=== PATIENT | male | born 2000 | race Caucasian/White ===

== ENCOUNTER 2022-10-16 00:10 | Inpatient (IN) | payer OTHER, SELFPAY ==
[2022-10-16] MEDS ORDERED: Fentanyl 100 MCG/2 ML VIAL ONE (00:51)
[2022-10-16] MEDS ORDERED: Morphine 4 MG/ML VIAL SLOW IVP PRN (02:32)
[2022-10-16] MEDS ORDERED: Ondansetron PF 4 MG/2 ML Vial IVP PRN ×2 (02:45→04:20)
[2022-10-16] MEDS ORDERED: Sodium Chloride 0.9% 1,000 ML IV SCH (02:45)
[2022-10-16] MEDS ORDERED: Ondansetron ODT 4 MG TAB SL PRN (02:45)
[2022-10-16 03:19] VITALS: BMI 27.9
[2022-10-16 03:56] LABS: SARS-CoV-2 NAA Rapid Test Not Detected (NotDetected)
[2022-10-16] MEDS: Sodium Chloride 0.9% 1,000 ML IV SCH ×2 (04:22→15:58)
[2022-10-16] MEDS ORDERED: Morphine 4 MG/ML VIAL SLOW IVP SCH (04:30)
[2022-10-16] MEDS ORDERED: Bupivacaine PF 0.5% 30 ML VIAL ONE (05:15)
[2022-10-16] MEDS ORDERED: Neomycin-Polymyxin 1 ML AMP ONE ×2 (05:16→06:49)
[2022-10-16] MEDS ORDERED: Thrombin 5000 UNITS/5 ML VIAL ONE (05:16)
[2022-10-16] MEDS ORDERED: Bacitracin Zinc Ointment 30 gm TUBE ONE (05:16)
[2022-10-16] MEDS ORDERED: Fentanyl 250 MCG/5 ML VIAL ONE (05:18)
[2022-10-16] MEDS ORDERED: Bisacodyl 10 MG SUPP PR PRN (05:43)
[2022-10-16] MEDS ORDERED: TETANUS, DIPHTHERIA TOX,ADULT (TDVAX) 0.5 ML VIAL IM ONE (05:43)
[2022-10-16] MEDS ORDERED: Communication Order-Pharmacy FS PRN (05:45)
[2022-10-16] MEDS: CEFAZOLIN 2 GM in Sodium Chloride 0.9% 100 ML IVPB SCH ×3 (05:59→22:03)
[2022-10-16] MEDS ORDERED: CEFAZOLIN 2 GM in Sodium Chloride 0.9% 100 ML IVPB SCH ×2 (06:00)
[2022-10-16] MEDS ORDERED: Dexamethasone 20 MG/5 ML VIAL ONE (06:01)
[2022-10-16] MEDS ORDERED: Glycopyrrolate 0.2 MG/ML 5 ML SYRINGE ONE (06:01)
[2022-10-16] MEDS ORDERED: NEOSTIGMINE 3 MG/3 ML SYR 3 MG/3 ML SYRINGE ONE (06:01)
[2022-10-16] MEDS ORDERED: PROPOFOL 200 MG/20 ML VIAL ONE (06:01)
[2022-10-16] MEDS ORDERED: Lidocaine 1% PF 5 ML VIAL ONE (06:01)
[2022-10-16] MEDS ORDERED: Rocuronium Bromide 10 MG/ML (10ML VIAL) ONE (06:01)
[2022-10-16] MEDS ORDERED: Ondansetron PF 4 MG/2 ML Vial ONE (06:01)
[2022-10-16] MEDS ORDERED: Promethazine HCl 25 MG/ML VIAL IM PRN (10:02)
[2022-10-16] MEDS ORDERED: Ondansetron HCl/PF 4 MG/2 ML Vial IVP PRN (10:02)
[2022-10-16] MEDS ORDERED: Ketorolac Tromethamine 30 MG/ML VIAL ONE (10:07)
[2022-10-16] MEDS: Ketorolac Tromethamine 30 MG/ML VIAL IVP PRN ×2 (10:18→18:54)
[2022-10-16] MEDS: Aspirin 81 mg Enteric Coated Tablet PO SCH ×2 (10:22→20:02)
[2022-10-16] MEDS: Gentamicin 80 MG/2 ML VIAL IM SCH ×3 (10:22→23:00)
[2022-10-16] MEDS: HYDROcodone/Acetaminophen 5/325 mg Tablet PO PRN ×3 (12:46→22:59)
[2022-10-16] MEDS: Morphine 4 MG/ML VIAL SLOW IVP PRN ×3 (14:06→22:03)
[2022-10-16] MEDS: Meperidine HCl/PF 25 MG/ML VIAL IM PRN (15:32)
[2022-10-17] MEDS: Sodium Chloride 0.9% 1,000 ML IV SCH ×2 (00:19→11:47)
[2022-10-17] MEDS: Ketorolac Tromethamine 30 MG/ML VIAL IVP PRN ×4 (01:15→19:56)
[2022-10-17] MEDS: Morphine 4 MG/ML VIAL SLOW IVP PRN ×5 (01:15→21:57)
[2022-10-17] MEDS: HYDROcodone/Acetaminophen 5/325 mg Tablet PO PRN ×2 (04:12→09:25)
[2022-10-17] MEDS: CEFAZOLIN 2 GM in Sodium Chloride 0.9% 100 ML IVPB SCH ×3 (05:21→21:56)
[2022-10-17] MEDS: Gentamicin 80 MG/2 ML VIAL IM SCH ×2 (05:21→14:09)
[2022-10-17] MEDS: Aspirin 81 mg Enteric Coated Tablet PO SCH ×2 (09:25→19:55)
[2022-10-17] MEDS: Meperidine HCl/PF 25 MG/ML VIAL IM PRN (12:14)
[2022-10-17] MEDS ORDERED: HYDROcodone/Acetaminophen 7.5/325 mg Tablet PO PRN (14:12)
[2022-10-17] MEDS: HYDROcodone/Acetaminophen 7.5/325 mg Tablet PO PRN ×2 (14:43→19:54)
[2022-10-17] MEDS ORDERED: Temazepam 15 MG CAP PO PRN (23:17)
[2022-10-18] MEDS: HYDROcodone/Acetaminophen 7.5/325 mg Tablet PO PRN ×3 (00:08→09:38)
[2022-10-18] MEDS: Morphine 4 MG/ML VIAL SLOW IVP PRN ×2 (01:40→08:16)
[2022-10-18] MEDS: Sodium Chloride 0.9% 1,000 ML IV SCH ×2 (04:31→06:44)
[2022-10-18] MEDS: Ketorolac Tromethamine 30 MG/ML VIAL IVP PRN (05:02)
[2022-10-18] MEDS: CEFAZOLIN 2 GM in Sodium Chloride 0.9% 100 ML IVPB SCH (05:02)
[2022-10-18 08:01] VITALS: BP 108/69; TEMP 97.6
[2022-10-18] MEDS: Aspirin 81 mg Enteric Coated Tablet PO SCH (08:16)
== END 2022-10-18 10:10 | disposition home or self-care (01) | DRG 906 ==
LOC: ERS 00:10 → SURG A 01:05 → OBSVTOIN 10-17 15:44
PROVIDERS: ADMIT Orthopaedic Surgery Hand Surgery; ATTEND Orthopaedic Surgery Hand Surgery
PROC: 3E033XZ Introduction of Vasopressor into Peripheral Vein, Percutaneous Approach (ICD-10-PCS; 2022-10-16)
PROC: 0PHT34Z Insertion of Internal Fixation Device into Right Finger Phalanx, Percutaneous Approach (ICD-10-PCS; principal; 2022-10-17)
PROC: 0PST34Z Reposition Right Finger Phalanx with Internal Fixation Device, Percutaneous Approach (ICD-10-PCS; 2022-10-17)
DX: S67.196A Crushing injury of right little finger, initial encounter (principal); S62.614B Displaced fracture of proximal phalanx of right ring finger, initial encounter for open fracture; S62.616B Displaced fracture of proximal phalanx of right little finger, initial encounter for open fracture; S67.194A Crushing injury of right ring finger, initial encounter; Z20.822 Contact with and (suspected) exposure to COVID-19
CPT/HCPCS: 96365; 96366; 96372; 96374; 96375; 96376; C1713; C1894; G0378; J1100; J1170; J1580; J1885; J2175; J2270; J2405; J2704; J3010; J3490; J7050; S0020; U0002

== ENCOUNTER 2023-01-30 10:54 | Outpatient (CLI) | payer OTHER | END 2023-01-30 10:55 | disposition home or self-care (01) | LOC: TBSIIMAG 10:54 | PROVIDERS: ATTEND Orthopaedic Surgery Hand Surgery | DX: M67.843 Other specified disorders of tendon, right hand (principal) ==

== ENCOUNTER 2023-05-01 14:56 | Outpatient (CLI) | payer OTHER | END 2023-05-01 14:57 | disposition home or self-care (01) | LOC: BICMRI 14:56 | PROVIDERS: ATTEND Orthopaedic Surgery Hand Surgery | DX: S62.614B Displaced fracture of proximal phalanx of right ring finger, initial encounter for open fracture (principal); M62.449 Contracture of muscle, unspecified hand; S66.314A Strain of extensor muscle, fascia and tendon of right ring finger at wrist and hand level, initial encounter; S66.316A Strain of extensor muscle, fascia and tendon of right little finger at wrist and hand level, initial encounter ==

== ENCOUNTER 2023-05-27 10:16 | Day surgery (SDC) | payer OTHER ==
[2023-05-26 13:46] VITALS: BMI 27.3
[2023-05-27] MEDS ORDERED: Bupivacaine PF 0.5% 30 ML VIAL ONE ×2 (10:56→13:15)
[2023-05-27] MEDS ORDERED: Bacitracin Zinc Ointment 30 gm TUBE ONE (10:56)
[2023-05-27] MEDS ORDERED: Midazolam HCl 2 mg/2 ml Vial ONE (11:36)
[2023-05-27] MEDS ORDERED: fentaNYL 50 mcg/mL 1 mL Vial ONE ×3 (11:36→12:24)
[2023-05-27] MEDS ORDERED: Sodium Chloride 0.9% 100 ML ONE (11:42)
[2023-05-27] MEDS ORDERED: CEFAZOLIN 2 GM VIAL ONE (11:42)
[2023-05-27] MEDS ORDERED: Lidocaine 1% PF 5 ML VIAL ONE (12:25)
[2023-05-27] MEDS ORDERED: PROPOFOL 200 MG/20 ML VIAL ONE (12:25)
[2023-05-27] MEDS ORDERED: ePHEDrine Sulfate 50 MG/10 ML VIAL ONE (12:25)
[2023-05-27] MEDS ORDERED: Ondansetron PF 4 MG/2 ML Vial ONE (12:25)
[2023-05-27] MEDS ORDERED: Ketorolac Tromethamine 30 MG/ML VIAL ONE ×2 (12:25→18:23)
[2023-05-27] MEDS ORDERED: Betamet Acet/Betamet Na Ph 30 MG/5 ML VIAL ONE (13:04)
[2023-05-27] MEDS ORDERED: Sevoflurane 250 ML INH ANEST BOTTLE ONE (13:58)
[2023-05-27] MEDS ORDERED: Acetaminophen 325 MG TAB ONE (18:07)
== END 2023-05-27 18:55 | disposition home or self-care (01) ==
LOC: SDC 10:16
PROVIDERS: ATTEND Orthopaedic Surgery Hand Surgery
PROC: 0RNW0ZZ Release Right Finger Phalangeal Joint, Open Approach (ICD-10-PCS; principal; 2023-05-27)
PROC: 0RNX0ZZ Release Left Finger Phalangeal Joint, Open Approach (ICD-10-PCS; principal; 2023-05-27)
DX: S62.614B Displaced fracture of proximal phalanx of right ring finger, initial encounter for open fracture (principal); S66.901A Unspecified injury of unspecified muscle, fascia and tendon at wrist and hand level, right hand, initial encounter; S62.616B Displaced fracture of proximal phalanx of right little finger, initial encounter for open fracture; M67.80 Other specified disorders of synovium and tendon, unspecified site; M24.50 Contracture, unspecified joint; M77.9 Enthesopathy, unspecified; M62.449 Contracture of muscle, unspecified hand; Z79.899 Other long term (current) drug therapy; X58.XXXA Exposure to other specified factors, initial encounter
CPT/HCPCS: J0702; J1885; J2250; J2405; J2704; J3010; J3490; S0020